=== PATIENT | female | born 1965 | race Caucasian/White ===

== ENCOUNTER 2019-08-14 14:26 | Emergency (ER) | payer OTHER, SELFPAY ==
--- NOTE | ~2019-08-14 | XR_ITS ---
EXAMINATION: XR wrist LT min 3V EXAM DATE: 08/14/2019 14:52 INDICATION: Initial encounter following injury, with pain of the left wrist. TECHNIQUE: Left wrist frontal, frontal with ulnar deviation, oblique and lateral projections obtained and reviewed. There is no prior study for comparison. FINDINGS: Left wrist scapholunate joint space is maintained. Possible acute nondisplaced closed post traumatic left distal radial styloid fracture. This finding has been indicated, marked on the examina tion for review, clinical correlation. Otherwise no suspicious findings. IMPRESSION: Possible acute nondisplaced left radial styloid fracture. Reviewed, dictated and finalized at location A.
[2019-08-14 14:35] VITALS: BP 147/67; PULSE 83; RESP 20; TEMP 37.6; O2SAT 98
--- NOTE | 2019-08-14 14:36 | ED.UPPEXIN ---
HPI - Extremity Injury (Upper) General Chief Complaint: Extremity Injury, Upper Stated Complaint: left wrist injury Time Seen by Provider: 08/14/19 14:36 Source: patient and RN notes reviewed History of Present Illness HPI narrative: Patient is a 54-year-old female who presents the urgent care with complaints of left wrist and forearm pain. Patient states that she fell going up the stairs last night, chasing her cat. Patient denies hitting her head or any loss of consciousness. Patient states that she is elevated and used ice but has not taken anything [id number] for her pain. No other acute complaints. Patient is right-hand dominant. No acute distress noted. Patient read the plan of care. Related Data Home Medications Medication Instructions Recorded Confirmed lisinopril 10 mg PO DAILY 08/14/19 08/14/19 omeprazole 20 mg PO DAILY 08/14/19 08/14/19 tiotropium bromide [Spiriva with 1 cap INHALATION DAILY 08/14/19 08/14/19 HandiHaler] Allergies Allergy/AdvReac Type Severity Reaction Status Date / Time acetaminophen Allergy Unknown Rash Verified 08/14/19 14:36 dextromethorphan Allergy Unknown Hives Verified 08/14/19 14:36 doxylamine Allergy Unknown Rash Verified 08/14/19 14:36 pseudoephedrine Allergy Unknown Rash Verified 08/14/19 14:36 Review of Systems Review of Systems: Narrative: CONSTITUTIONAL: Denies fever, chills, or sweats. EYES: Denies visual changes, redness, or discharge. ENT: Denies rhinorrhea, congestion, sore throat, or otalgia. CARDIOVASCULAR: Denies chest pain, palpitations, or edema. RESPIRATORY: Denies cough or dyspnea. GASTROINTESTINAL: Denies abdominal pain, nausea, vomiting, or diarrhea. GENITOURINARY: Denies dysuria or hematuria. SKIN: Denies rash or itching. MUSCULOSKELETAL: Reports of left wrist swelling, pain, bruising NEUROLOGIC: Denies headache, numbness, or weakness. All other systems reviewed are negative, except as documented in HPI. [facility] Past Medical History Medical History (Updated 08/14/19 @ 15:25 by ROWENA Riggins) Asthma Bronchitis Hypertension Mitral valve prolapse Surgical History Surgical History (Updated 04/08/19 @ 17:13 by ROWENA Braga) History of neck surgery Social History Social History Gender identity (if verbalized by the patient): Female Comments At the time of my signature, I reviewed and agree with the nursing past medical, surgical, social, and family history. There is no relevant family history pertinent to the patient complaint. Exam Narrative: Exam Narrative: GENERAL: This is a well-nourished, well-developed patient, in no apparent distress. HEAD: normocephalic, atraumatic. EYES: PERRL. Sclera clear/white. Vision is grossly intact. EARS: External ears normal NOSE: External nose normal with no obvious nasal discharge, nares without redness, no rhinorrhea. THROAT: Mucous membranes moist NECK: Neck supple CARDIOVASCULAR: Regular rate and rhythm without murmurs, gallops, or rubs. SKIN: warm, intact with no suspicious lesions or rash, good texture and turgor. NEURO: awake, alert, and oriented to person, place and time. There were no obvious focal neurologic abnormalities. EXTREMITIES: Moderate edema and ecchymosis noted to the medial/ulnar aspect of the left wrist/forearm with moderate tenderness. Moderate tenderness over the distal radial aspect of the left. Positive strong left radial pulse with capillary refill less than 2 seconds. Range of motion not tested due to pain. Course Vital Signs Vital signs: Vital Signs Temperature 99.6 F 08/14/19 14:35 Pulse Rate 83 08/14/19 14:35 Respiratory Rate 08/14/19 14:35 Blood Pressure 147/67 H 08/14/19 14:35 Pulse Oximetry 98 08/14/19 14:35 Temperature 99.6 F 08/14/19 14:35 Pulse Rate 83 08/14/19 14:35 Respiratory Rate 20 08/14/19 14:35 Blood Pressure 147/67 H 08/14/19 14:35 Pulse Ox
== END 2019-08-14 15:29 | disposition home or self-care (01) ==
PROVIDERS: Emergency Provider Nurse Practitioner Family; PCP Family Medicine
DX: S52.515A Nondisplaced fracture of left radial styloid process, initial encounter for closed fracture (principal); J45.909 Unspecified asthma, uncomplicated; I10 Essential (primary) hypertension; I34.1 Nonrheumatic mitral (valve) prolapse; W10.9XXA Fall (on) (from) unspecified stairs and steps, initial encounter
CPT/HCPCS: 29125; 73110; 99214; A4565; G0463

== ENCOUNTER 2019-10-25 15:29 | Emergency (ER) | payer OTHER, SELFPAY ==
--- NOTE | 2019-10-25 15:58 | ED.GENADULT ---
HPI - General Adult General Chief complaint: Skin/Abscess/Foreign Body Stated complaint: Rash Time Seen by Provider: 10/25/19 16:32 Source: patient Mode of arrival: ambulatory Limitations: no limitations History of Present Illness HPI narrative: 54-year-old female patient presents to the [facility] with complaints of a poison elvie rash for the past 4 weeks. Patient states this started on bilateral arms and states she has been treating it with [id number] calamine, topical Benadryl and oral Benadryl. Patient states that is now spread to her private area. Denies any chest pain, shortness of breath. Denies any trouble swallowing. Related Data Home Medications Medication Instructions Recorded Confirmed omeprazole 20 mg PO DAILY 08/14/19 08/14/19 tiotropium bromide [Spiriva with 1 cap INHALATION DAILY 08/14/19 08/14/19 HandiHaler] albuterol sulfate 10/25/19 10/25/19 albuterol sulfate [ProAir HFA] INHALATION 10/25/19 fluticasone propion-salmeterol INHALATION 10/25/19 [Wixela Inhub] gabapentin 10/25/19 lisinopril 10/25/19 lisinopril 10/25/19 meloxicam 10/25/19 tiotropium bromide [Spiriva with INHALATION 10/25/19 HandiHaler] Allergies Allergy/AdvReac Type Severity Reaction Status Date / Time acetaminophen Allergy Unknown Rash Verified 10/25/19 16:18 dextromethorphan Allergy Unknown Hives Verified 10/25/19 16:18 doxylamine Allergy Unknown Rash Verified 10/25/19 16:18 pseudoephedrine Allergy Unknown Rash Verified 10/25/19 16:18 Review of Systems Review of Systems: Narrative: CONSTITUTIONAL: Denies fever, chills, or sweats. EYES: Denies visual changes, redness, or discharge. ENT: Denies rhinorrhea, congestion, sore throat, or otalgia. CARDIOVASCULAR: Denies chest pain, palpitations, or edema. RESPIRATORY: Denies cough or dyspnea. GASTROINTESTINAL: Denies abdominal pain, nausea, vomiting, or diarrhea. GENITOURINARY: Denies dysuria or hematuria. SKIN: Positive rash with itching to bilateral arms and perineal area x4 weeks MUSCULOSKELETAL: Denies back pain, joint pain, or myalgia. NEUROLOGIC: Denies headache, numbness, or weakness. PSYCHIATRIC: Denies anxiety or depression. [facility] Past Medical History Medical History Asthma Bronchitis Hypertension Mitral valve prolapse Surgical History Surgical History History of neck surgery Social History Social History Gender identity (if verbalized by the patient): Female Comments At the time of my signature I agree with nursing past medical history, surgical, social, and family history. There is no relevant family history pertinent to the presenting complaint. Exam Narrative: Exam Narrative: GENERAL: Well-appearing, well-nourished, and in no acute distress. HEAD: Normocephalic, atraumatic. EYES: PERRLA and EOMI. ENT: Nares clear, no rhinorrhea or epistaxis. Mucous membranes moist. NECK: Supple. No lymphadenopathy CHEST: Clear to auscultation. No respiratory distress. HEART: Regular rate and rhythm. No murmur heard. Normal peripheral pulses. ABDOMEN: Soft, nontender, nondistended, normal active bowel sounds. EXTREMITIES: Normal range of motion. No edema. SKIN: Warm, dry, patient has linear rash with pruritus to bilateral forearms. Similar rash to the perineal area as per patient statement. No open wounds or discharge noted. NEURO: No focal deficits. Alert and oriented x3. Course Vital Signs Vital signs: Vital Signs Temperature 36.8 C 10/25/19 16:10 Pulse Rate 72 10/25/19 16:10 Respiratory Rate 18 10/25/19 16:10 Blood Pressure 131/67 10/25/19 16:10 Pulse Oximetry 98 10/25/19 16:10 Temperature 36.8 C 10/25/19 16:10 Pulse Rate 72 10/25/19 16:10 Respiratory Rate 18 10/25/19 16:10 Blood Pressure 131/67 10/25/19 16:10 Pulse Oximetry 98 10/25/19 16:10
[2019-10-25 16:10] VITALS: BP 131/67; PULSE 72; RESP 18; TEMP 36.8; O2SAT 98
== END 2019-10-25 16:40 | disposition home or self-care (01) ==
PROVIDERS: Emergency Provider Nurse Practitioner Family; PCP Family Medicine
DX: L25.5 Unspecified contact dermatitis due to plants, except food (principal); I10 Essential (primary) hypertension; J45.909 Unspecified asthma, uncomplicated; T63.791A Toxic effect of contact with other venomous plant, accidental (unintentional), initial encounter
CPT/HCPCS: 99213; G0463

== ENCOUNTER 2022-05-19 01:41 | Day surgery (SDC) | payer OTHER, SELFPAY ==
[2022-05-06 11:58] VITALS: BMI 35.5
--- NOTE | 2022-05-06 12:04 | PC.NURSE ---
Report to the Outpatient Waiting Room, entrance under the green pavilion located off [facility], at time 0745 on date 05/19/22. Planned Procedure Time: 0945. Time changes happen often and if your time is changed the preop area will call you the afternoon before. - You and your visitor will be asked to self-screen and do not enter if you have any COVID symptoms. - Only one visitor is requested with a max of two and NO children visitors are allowed at this time. - The patient visitor may be requested to leave or wait in car when not with patient due to distancing restrictions. - A mask is optional within the hospital at this time. Patients may have clear liquids (water, carbonated beverages, clear teas, apple juice) until 3 hours prior to surgery with a maximum of 20 ounces. - No food from midnight until time of surgery Take the following medications with a SIP of water the morning of surgery: INHALERS DO NOT STOP ANY OF YOUR OTHER PRESCRIPTION MEDICATIONS PRIOR TO SURGERY EXCEPT THE FOLLOWING Medications to discontinue per physician: VITAMINS/SUPPLEMENTS Date to take last dose: 05/15/22 Please no make-up, nail italian, hairspray, perfume, deodorant, or body powder the day of surgery. No jewelry (including any body piercings) or valuables the day of surgery, leave them at home. Please take a shower or bath the night before, or the morning of, surgery with an antibacterial soap. Wear comfortable, loose fitting clothing. - Jewelry must be removed prior to entering the operating room. Rings and piercings that are not removed may be cut off. - The hospital will not accept responsibility for valuables. - Please leave all valuables, including medications, at home the day of surgery. If you are going home after surgery, a licensed helper/driver must drive you home. - NO public transportation without another adult if you receive anesthesia. - We recommend that an adult stay with you for 24 hours following discharge. - We also recommend that you do not drive, make important decision, drink alcoholic beverages, or take any drugs that were not prescribed by your health care provider for at least 24 hours after your discharge time. Follow any additional instructions given to you from your surgeon. If you or anyone in your household have experienced Covid symptoms in the past week, please notify your surgeon or the nurse liaison at the phone number below for possible testing. Telephone instructions given to MENDY RILEY and asked if any additional questions and then verbalized understanding. Patient advised to call surgeon office or pre surgery nurse liaison [phone] if any additional questions.
[2022-05-19 07:50] VITALS: BP 154/84; PULSE 80; RESP 18; TEMP 37.2; O2SAT 98
[2022-05-19] MEDS: LACTATED RINGERS 1,000 ML 30 ML IV CONT (08:15)
[2022-05-19] MEDS: ACETAMINOPHEN 500 MG TABLET 1000 MG PO (08:17)
--- NOTE | 2022-05-19 08:48 | PM.HPGS ---
History of Present Illness History of Present Illness Consent: Risks, benefits, and alternatives have been discussed and questions answered. Patient agrees to proceed with procedure. Chief complaint: thickend endometrium lining Narrative: Cheyenne Remy is a 57 year old female incidental finding of a thickened endometrium. Patient underwent CT scan for her history of colon cancer which revealed a thickened endometrium. A pelvic ultrasound was then performed which revealed a 1cm endometrial lining. The patient states she has had no bleeding. It was recommended to proceed with D&C hysteroscopy to further evaluate. Risks of infection, bleeding, perforation, and possible pathology were reviewed. The patient voices understanding and agrees to proceed. Review of Systems Review of Systems: not repeated day of surgery; patient states no changes in status PMFSH Past Medical History Medical History (Updated 05/19/22 @ 08:53 by Hailey Otto MD) Asthma Bronchitis COPD Colon cancer 2020 status post chemotherapy Diabetes Fibromyalgia Gout Hypertension Mitral valve prolapse (normal spontaneous vaginal delivery) x6 Panic attacks Surgical History Surgical History (Updated 05/19/22 @ 08:53 by Hailey Otto MD) History of bilateral tubal ligation History of neck surgery History of tonsillectomy S/P partial colectomy 2021 Social History Social History Smoking packs per day: 1 Smoking cigarettes per day: 20.0 Years smoked: 40 Smoking pack-years: 40.00 Smoking status: Current every day smoker Tobacco type: cigarettes Alcohol intake: never Substance use: never Substance use type: does not use Living arrangements: with family Gender identity (if verbalized by the patient): Female Spiritual care concerns: No Meds Home Medications and Allergies Home Medications Medication Instructions Recorded Confirmed Type tiotropium bromide 18 mcg capsule 1 cap inhalation DAILY 08/14/19 05/19/22 History with inhalation device (Spiriva with HandiHaler) albuterol sulfate 2.5 mg/3 mL 2.5 mg inhalation Q4H 10/25/19 05/19/22 History (0.083 %) solution for nebulization albuterol sulfate 90 mcg/actuation 2 puff inhalation Q4-6H 10/25/19 05/19/22 History aerosol inhaler (ProAir HFA) omeprazole 20 mg capsule,delayed 20 mg PO DAILY 10/25/19 05/19/22 History release ergocalciferol (vitamin D2) 1,250 1,250 mcg PO WEEKLY 05/06/22 05/19/22 History mcg (50,000 unit) capsule (Vitamin D2) potassium chloride 20 mEq 20 meq PO DAILY 05/06/22 05/19/22 History tablet,extended release prednisone 20 mg tablet 20 mg PO DAILY 05/19/22 05/19/22 History Allergies Allergy/AdvReac Type Severity Reaction Status Date / Time dextromethorphan Allergy Anaphylaxis Verified 05/19/22 08:24 [From NyQuil] doxylamine [From NyQuil] Allergy Anaphylaxis Verified 05/19/22 08:24 pseudoephedrine [From NyQuil] Allergy Anaphylaxis Verified 05/19/22 08:24 Vital Signs Vital Signs - 24 hr 05/19/22 07:50 Temperature 98.9 F Pulse Rate 80 Respiratory Rate 18 Blood Pressure 154/84 H Pulse Oximetry 98 Oxygen Delivery Room Air Exam Const: General: healthy appearing and alert Orientation/consciousness: patient oriented x3 Resp: Effort & Inspection: normal respiratory effort GI: GI Palp: Yes Soft to palpation, No Tenderness to palpation present (GI) and No Palpable mass present : External Female Exam: normal external appearance Speculum Exam - Vagina: normal appearance of the vagina and normal vaginal discharge Speculum Exam - Cervix: normal appearance of the cervix Bimanual exam- vagina & uterus: uterine size normal and consistency normal Bimanual Exam- Adnexa, other: normal adnexae and No adnexal tenderness Neuro: General: patient oriented x3 Assessment and Plan Assessment and plan (1) Thickened endo
--- NOTE | 2022-05-19 08:53 | WPDHPUPDATE1 ---
History and Physical Update Update Date/Time: 05/19/22 08:53 History and Physical has been reviewed, including an updated exam of the patient. There are NO changes in the patient's condition. Risks, benefits, and alternatives have been discussed and questions answered. Patient agrees to proceed with procedure.
--- NOTE | 2022-05-19 09:14 | WPDANESEPPF ---
Anes - Initial Pre Proc Eval Procedure: Operation Date: 05/19/22 09:45 Proposed Procedures p Hysteroscopy Dilation and Curettage - Hailey Otto MD Date/Time: 05/19/22 09:14 Surgeon: Hailey Otto MD Pre Op Diagnosis: thickend endometrium lining Patient Data Age: 57 Gender: F Height: 1.7 m Weight: 103.6 kg Last Vital Signs Temp 37.2 C 05/19/22 07:50 Pulse 80 05/19/22 07:50 Resp 18 05/19/22 07:50 BP 154/84 H 05/19/22 07:50 Pulse Ox 98 05/19/22 07:50 O2 Del Method Room Air 05/19/22 07:50 Allergies Allergy/AdvReac Type Severity Reaction Status Date / Time dextromethorphan Allergy Anaphylaxis Verified 05/19/22 08:24 [From NyQuil] doxylamine [From NyQuil] Allergy Anaphylaxis Verified 05/19/22 08:24 pseudoephedrine [From NyQuil] Allergy Anaphylaxis Verified 05/19/22 08:24 Home Medications Medication Instructions Recorded Confirmed Type tiotropium bromide 18 mcg capsule 1 cap inhalation DAILY 08/14/19 05/19/22 History with inhalation device (Spiriva with HandiHaler) albuterol sulfate 2.5 mg/3 mL 2.5 mg inhalation Q4H 10/25/19 05/19/22 History (0.083 %) solution for nebulization albuterol sulfate 90 mcg/actuation 2 puff inhalation Q4-6H 10/25/19 05/19/22 History aerosol inhaler (ProAir HFA) omeprazole 20 mg capsule,delayed 20 mg PO DAILY 10/25/19 05/19/22 History release ergocalciferol (vitamin D2) 1,250 1,250 mcg PO WEEKLY 05/06/22 05/19/22 History mcg (50,000 unit) capsule (Vitamin D2) potassium chloride 20 mEq 20 meq PO DAILY 05/06/22 05/19/22 History tablet,extended release prednisone 20 mg tablet 20 mg PO DAILY 05/19/22 05/19/22 History Patient hx anesthesia problems: none Family hx anesthesia problems: post op nausea/vomiting Results Review: All pre-operative results and documents have been reviewed as part of the pre-operative evaluation. [facility] Past Medical History Medical History Asthma Bronchitis COPD Colon cancer 2020 status post chemotherapy Diabetes Fibromyalgia Gout Hypertension Mitral valve prolapse (normal spontaneous vaginal delivery) x6 Panic attacks Surgical History Surgical History History of bilateral tubal ligation History of neck surgery History of tonsillectomy S/P partial colectomy 2021 Social History Social History Smoking packs per day: 1 Smoking cigarettes per day: 20.0 Years smoked: 40 Smoking pack-years: 40.00 Smoking status: Current every day smoker Tobacco type: cigarettes Alcohol intake: never Substance use: never Substance use type: does not use Living arrangements: with family Gender identity (if verbalized by the patient): Female Spiritual care concerns: No Anes - Eval Final PreProcedure Day of Procedure 05/19/22 09:14 Patient weight: obese Heart: regular rate and rhythm Lungs: decreased breath sounds Airway: Mallampati scale class II Neurological: alert and oriented Last oral intake: >/= 8 hours ASA classification: III Emergent: no Anesthetic plan: proceed Anesthesia type and monitoring: general GIVS and standard monitoring Results Review: All pre-operative results and documents have been reviewed as part of the pre-operative evaluation. Informed Consent: The patient's anesthetic plan and its attendant risks and benefits were discussed with the patient/family/POA. Questions were solicited and answers provided to the satisfaction of the patient/family/POA.
[2022-05-19] MEDS: LIDOCAINE HCL 1% LOCAL INJ 20 ML VIAL 30 ML INFILTRATE (10:13)
[2022-05-19 10:30] VITALS: BP 121/61; PULSE 61; RESP 12; O2SAT 99
--- NOTE | 2022-05-19 10:31 | P.OP_ITS ---
Procedure Note - Detailed Date of Procedure 05/19/22 Pre-op Diagnosis thickend endometrium lining Post-op Diagnosis Same Procedure Performed D&C hysteroscopy Surgeon Hailey Otto MD Anesthesia MAC and Local Findings uterus sounds to 8cm; there is a large posterior wall polyp there are 2 small polyps 1 at the right cornua and 1 at the left cornea; the remainder of the endometrium appears atrophic Description of Procedure The patient is taken to the operating room and placed under anesthesia in the dorsal lithotomy position. She was prepped and draped in the usual sterile fashion. [place] speculum was placed the vagina and the cervix grasped on the anterior lip with attending. The cervix is injected in each quadrant with 1% lidocaine. The uterus is sounded to 8cm. The diagnostic hysteroscope was placed with the above-stated findings. The Aveta resection device is placed and under direct visualization all 3 polyps are removed in their entirety. The instruments are removed and the sharp curette used to curette the endometrium until a good uterine cry was noted in all areas. Minimal material was obtained with this process consistent with the atrophic appearance. All instruments are removed. Sponge, needle, and instrument counts are correct per the OR staff. The patient was awakened from anesthesia and taken to recovery in stable condition. Estimated Blood Loss 5 Drains No Pathology Yes ( endometrial shavings and curettings) Complications No immediate complications Condition Stable Disposition PACU
[2022-05-19 11:00] VITALS: BP 120/59; PULSE 62; RESP 18; O2SAT 97
[2022-05-19] MEDS: oxyCODONE HCL (*CRX) 5 MG TAB IR PO (11:21)
[2022-05-19 11:30] VITALS: BP 125/79; PULSE 63; RESP 16; O2SAT 100
== END 2022-05-19 11:41 | disposition home or self-care (01) ==
PROVIDERS: PCP Family Medicine; Visit Provider Obstetrics & Gynecology Gynecology
PROC: 0U5B8ZZ Destruction of Endometrium, Via Natural or Artificial Opening Endoscopic (ICD-10-PCS; CPT 58563; principal; 2022-05-19 09:45)
DX: N84.0 Polyp of corpus uteri (principal); I10 Essential (primary) hypertension; M79.7 Fibromyalgia; J45.909 Unspecified asthma, uncomplicated; M10.9 Gout, unspecified; I34.1 Nonrheumatic mitral (valve) prolapse; Z85.038 Personal history of other malignant neoplasm of large intestine; Z92.21 Personal history of antineoplastic chemotherapy; Z90.49 Acquired absence of other specified parts of digestive tract; F17.210 Nicotine dependence, cigarettes, uncomplicated; Z79.51 Long term (current) use of inhaled steroids
CPT/HCPCS: 58558; 88305; A9270; J2250; J2704; J3010; J7120

== ENCOUNTER 2022-12-22 02:40 | Day surgery (SDC) | payer MEDICAID, SELFPAY ==
[2022-12-16 11:04] VITALS: BMI 36.1
--- NOTE | 2022-12-16 11:08 | PC.NURSE ---
Report to the Outpatient Waiting Room, entrance under the green pavilion located off [facility], at time 1130 on date 12/22/22. Planned Procedure Time: 1330. Time changes happen often and if your time is changed the preop area will call you the afternoon before. - You and your visitor will be asked to self-screen and do not enter if you have any COVID symptoms. - A mask is optional within the hospital at this time. Patients may have clear liquids (water, carbonated beverages, clear teas, apple juice) until 3 hours prior to surgery with a maximum of 20 ounces. - No food from midnight until time of surgery Take the following medications with a SIP of water the morning of surgery: INHALERS DO NOT STOP ANY OF YOUR OTHER PRESCRIPTION MEDICATIONS PRIOR TO SURGERY ?EXCEPT THE FOLLOWING Medications to discontinue per physician: N/A Date to take last dose: N/A Please no make-up, nail zambian, hairspray, perfume, deodorant, or body powder the day of surgery. No jewelry (including any body piercings) or valuables the day of surgery, leave them at home. Please take a shower or bath the night before, or the morning of, surgery with an antibacterial soap. Wear comfortable, loose fitting clothing. - Jewelry must be removed prior to entering the operating room. Rings and piercings that are not removed may be cut off. - The hospital will not accept responsibility for valuables. - Please leave all valuables, including medications, at home the day of surgery. If you are going home after surgery, a licensed truck driver's offsider must drive you home. - NO public transportation without another adult if you receive anesthesia. - We recommend that an adult stay with you for 24 hours following discharge. - We also recommend that you do not drive, make important decision, drink alcoholic beverages, or take any drugs that were not prescribed by your health care provider for at least 24 hours after your discharge time. Follow any additional instructions given to you from your surgeon. If you or anyone in your household have experienced Covid symptoms in the past week, please notify your surgeon or the nurse liaison at the phone number below for possible testing. Telephone instructions given to PT - NINO RILEY and asked if any additional questions and then verbalized understanding. Patient advised to call surgeon office or pre surgery nurse liaison [phone] if any additional questions.
--- NOTE | 2022-12-22 09:28 | WPDHPUPDATE1 ---
History and Physical Update Update Date/Time: 12/22/22 09:28 History and Physical has been reviewed, including an updated exam of the patient. There are NO changes in the patient's condition. Risks, benefits, and alternatives have been discussed and questions answered. Patient agrees to proceed with procedure.
--- NOTE | 2022-12-22 09:28 | PM.HPGS ---
History of Present Illness History of Present Illness Consent: Risks, benefits, and alternatives have been discussed and questions answered. Patient agrees to proceed with procedure. Chief complaint: Thickened Endometrium Narrative: Cheyenne Remy is a 57 year old female who underwent a CT scan due to history of colon cancer and was found incidentally to have a thickened endometrium at 0.9cm. Patient denies vaginal bleeding. Patient with a recent hysteroscopy with removal of polyp. It was recommended undergo D&C hysteroscopy. Risks of infection, bleeding, perforation, and possible pathology are reviewed. Patient voices understanding and agrees to proceed. Review of Systems Review of Systems: not repeated day of surgery; patient states no changes in status PMFSH Past Medical History Medical History Asthma Bronchitis COPD Colon cancer 2020 status post chemotherapy Diabetes Fibromyalgia Gout Hypertension Mitral valve prolapse (normal spontaneous vaginal delivery) x6 Panic attacks Surgical History Surgical History (Updated 12/22/22 @ 09:30 by Hailey Otto MD) History of bilateral tubal ligation History of hysteroscopy April 2022 with polyp History of neck surgery History of tonsillectomy S/P partial colectomy 2021 Social History Social History Smoking packs per day: 1 Smoking cigarettes per day: 20.0 Years smoked: 25 Smoking pack-years: 25.00 Smoking status: Current every day smoker Tobacco type: cigarettes Alcohol intake: never Substance use: never Substance use type: does not use Living arrangements: with family Gender identity (if verbalized by the patient): Female Spiritual care concerns: No Meds Home Medications and Allergies Home Medications Medication Instructions Recorded Confirmed Type tiotropium bromide 18 mcg capsule 1 cap inhalation DAILY 08/14/19 12/16/22 History with inhalation device (Spiriva with HandiHaler) albuterol sulfate 2.5 mg/3 mL 2.5 mg inhalation Q4H 10/25/19 12/16/22 History (0.083 %) solution for nebulization albuterol sulfate 90 mcg/actuation 2 puff inhalation Q4-6H 10/25/19 12/16/22 History aerosol inhaler (ProAir HFA) omeprazole 20 mg capsule,delayed 20 mg PO HS 10/25/19 12/16/22 History release allopurinol 100 mg tablet 100 mg PO HS 12/16/22 12/16/22 History cetirizine 10 mg tablet (Zyrtec) 10 mg PO DAILY 12/16/22 12/16/22 History Allergies Allergy/AdvReac Type Severity Reaction Status Date / Time dextromethorphan Allergy Anaphylaxis Verified 12/16/22 11:02 [From NyQuil] doxylamine [From NyQuil] Allergy Anaphylaxis Verified 12/16/22 11:02 pseudoephedrine [From NyQuil] Allergy Anaphylaxis Verified 12/16/22 11:02 Exam Const: General: healthy appearing and alert Orientation/consciousness: patient oriented x3 Resp: Effort & Inspection: normal respiratory effort GI: GI Palp: Yes Soft to palpation, No Tenderness to palpation present (GI) and No Palpable mass present : External Female Exam: normal external appearance Speculum Exam - Vagina: normal appearance of the vagina and normal vaginal discharge Speculum Exam - Cervix: normal appearance of the cervix Bimanual exam- vagina & uterus: uterine size normal and consistency normal Bimanual Exam- Adnexa, other: normal adnexae and No adnexal tenderness Neuro: General: patient oriented x3 Assessment and Plan Assessment and plan (1) Thickened endometrium: Code(s): R93.89 - Abnormal findings on diagnostic imaging of other specified body structures Status: Acute Assessment and Plan: Plan to proceed with D&C hysteroscopy
[2022-12-22 12:00] VITALS: BP 131/79; PULSE 72; RESP 18; TEMP 36.5; O2SAT 98
[2022-12-22] MEDS: LACTATED RINGERS 1,000 ML 30 ML IV CONT (12:00)
--- NOTE | 2022-12-22 12:20 | WPDANESEPPF ---
Anes - Initial Pre Proc Eval Procedure: Operation Date: 12/22/22 13:30 Proposed Procedures p Hysteroscopy Dilation and Curettage - Hailey Otto MD Date/Time: 12/22/22 12:20 Surgeon: Hailey Otto MD Pre Op Diagnosis: Thickened Endometrium Patient Data Age: 57 Gender: F Height: 1.7 m Weight: 104.8 kg Allergies Allergy/AdvReac Type Severity Reaction Status Date / Time dextromethorphan Allergy Anaphylaxis Verified 12/16/22 11:02 [From NyQuil] doxylamine [From NyQuil] Allergy Anaphylaxis Verified 12/16/22 11:02 pseudoephedrine [From NyQuil] Allergy Anaphylaxis Verified 12/16/22 11:02 Home Medications Medication Instructions Recorded Confirmed Type tiotropium bromide 18 mcg capsule 1 cap inhalation DAILY 08/14/19 12/16/22 History with inhalation device (Spiriva with HandiHaler) albuterol sulfate 2.5 mg/3 mL 2.5 mg inhalation Q4H 10/25/19 12/16/22 History (0.083 %) solution for nebulization albuterol sulfate 90 mcg/actuation 2 puff inhalation Q4-6H 10/25/19 12/16/22 History aerosol inhaler (ProAir HFA) omeprazole 20 mg capsule,delayed 20 mg PO HS 10/25/19 12/16/22 History release allopurinol 100 mg tablet 100 mg PO HS 12/16/22 12/16/22 History cetirizine 10 mg tablet (Zyrtec) 10 mg PO DAILY 12/16/22 12/16/22 History Patient hx anesthesia problems: none Family hx anesthesia problems: none Results Review: All pre-operative results and documents have been reviewed as part of the pre-operative evaluation. [facility] Past Medical History Medical History Asthma Bronchitis COPD Colon cancer 2020 status post chemotherapy Diabetes Fibromyalgia Gout Hypertension Mitral valve prolapse (normal spontaneous vaginal delivery) x6 Panic attacks Surgical History Surgical History History of bilateral tubal ligation History of hysteroscopy April 2022 with polyp History of neck surgery History of tonsillectomy S/P partial colectomy 2021 Social History Social History Smoking packs per day: 1 Smoking cigarettes per day: 20.0 Years smoked: 25 Smoking pack-years: 25.00 Smoking status: Current every day smoker Tobacco type: cigarettes Alcohol intake: never Substance use: never Substance use type: does not use Living arrangements: with family Gender identity (if verbalized by the patient): Female Spiritual care concerns: No Anes - Eval Final PreProcedure Day of Procedure 12/22/22 12:20 Patient weight: obese Heart: regular rate and rhythm Lungs: clear to auscultation Airway: Mallampati scale class II Neurological: alert and oriented Last oral intake: >/= 8 hours ASA classification: III Emergent: no Anesthetic plan: proceed Anesthesia type and monitoring: general GIVS and standard monitoring Results Review: All pre-operative results and documents have been reviewed as part of the pre-operative evaluation. Informed Consent: The patient's anesthetic plan and its attendant risks and benefits were discussed with the patient/family/POA. Questions were solicited and answers provided to the satisfaction of the patient/family/POA.
[2022-12-22] MEDS: ACETAMINOPHEN 500 MG TABLET 1000 MG PO (12:48)
--- NOTE | 2022-12-22 14:01 | P.OP_ITS ---
Procedure Note - Detailed Date of Procedure 12/22/22 Pre-op Diagnosis Thickened Endometrium Post-op Diagnosis Same Procedure Performed D&C hysteroscopy Surgeon Hailey Otto MD Anesthesia MAC Findings Uterus sounds to 8cm and appears atrophic Description of Procedure The patient is taken to the operating room and placed under anesthesia in the dorsal lithotomy position. She was prepped and draped in the usual sterile fashion. Grayling speculum was placed in the vagina and the cervix grasped on the anterior lip with a tenaculum. The uterus is sounded to 8cm. The diagnostic hysteroscope was placed and with no abnormalities noted it is removed. The 00 curette is attempted to be placed and cervix is too stenotic. Cervix is serially dilated to a 6 Hegar. The curette then passes and a sharp curettage of the endometrium is performed. Minimal material was obtained consistent with the atrophic appearance. All instruments are removed. Patient is awakened from anesthesia and taken to recovery in stable condition. The sponge, needle, and instrument counts are correct per the OR staff. Estimated Blood Loss 5 Drains No Packing No Pathology Yes (Endometrial curettings) Complications No immediate complications Condition Stable Disposition PACU
[2022-12-22 14:02] VITALS: BP 98/51; PULSE 65; RESP 16; O2SAT 97
[2022-12-22] MEDS: oxyCODONE HCL (*CRX) 5 MG TAB IR PO (14:29)
[2022-12-22 14:30] VITALS: BP 123/58; PULSE 63; RESP 16
[2022-12-22] MEDS: fentaNYL CITRATE INJ (*CRX) 100 MCG/2 ML VIAL 25 MCG IV PUSH (14:32)
[2022-12-22 15:00] VITALS: BP 110/54; PULSE 63; RESP 16
== END 2022-12-22 15:30 | disposition home or self-care (01) ==
PROVIDERS: PCP Family Medicine; Visit Provider Obstetrics & Gynecology Gynecology
PROC: 0U5B8ZZ Destruction of Endometrium, Via Natural or Artificial Opening Endoscopic (ICD-10-PCS; CPT 58563; principal; 2022-12-22 13:30)
DX: R93.89 Abnormal findings on diagnostic imaging of other specified body structures (principal); J44.9 Chronic obstructive pulmonary disease, unspecified; E11.9 Type 2 diabetes mellitus without complications; I10 Essential (primary) hypertension; I34.1 Nonrheumatic mitral (valve) prolapse; M79.7 Fibromyalgia; M10.9 Gout, unspecified; Z79.82 Long term (current) use of aspirin; F17.210 Nicotine dependence, cigarettes, uncomplicated; E66.9 Obesity, unspecified; Z68.36 Body mass index [BMI] 36.0-36.9, adult; Z85.038 Personal history of other malignant neoplasm of large intestine; Z92.21 Personal history of antineoplastic chemotherapy
CPT/HCPCS: 58558; 88305; A9270; J1100; J2250; J2405; J2704; J3010; J7120